=== PATIENT | female | born 1960 ===

== ENCOUNTER → 2023-09-19 11:03 | Outpatient (CLI) | payer OTHER, SELFPAY ==
--- NOTE | ~2023-09-19 | MR_ITS ---
EXAMINATION: MR foot RT wo con DATE: 09/19/2023 12:10 INDICATION: Right foot pain TECHNIQUE: Magnetic resonance imaging (MRI) of the right fore/mid foot was performed without intraven ous contrast. Sequences included sagittal T1-weighted FSE, sagittal fluid sensitive FSE STIR, coronal PD-weighted FS FSE, coronal T1-weighted FSE, axial PD-weighted FS FSE, and axial PD-weighted FSE. COMPARISON: None FINDINGS: Bone alignment is normal. Normal bone marrow signal throughout. No fracture or pathologic marrow repl acing process. Mild polyarticular osteoarthritis at the first metatarsophalangeal and multiple tarsom etatarsal and interphalangeal joints. The Lisfranc ligament complex and the collateral ligament compl ex at the metatarsophalangeal and interphalangeal joints appear normal. Visualized portions of the fl exor and extensor tendons are normal. Intrinsic musculature of the foot is unremarkable. There is sub cutaneous edema over the dorsum of the foot. No joint effusions, bursitis, tendon tenosynovitis or ot her abnormal fluid collections. IMPRESSION: 1. Mild polyarticular osteoarthritis in the mid and forefoot. Reviewed, dictated and finalized at location [facility].
--- NOTE | ~2023-09-19 | MR_ITS ---
MRI of the right ankle Clinical history: Ileus tendinitis Technique: Coronal proton-density and proton-density fat-sat images, axial proton-density and proton- density fat-sat images, and sagittal proton-density and proton-density fat-sat images were acquired. Findings: Syndesmotic ligaments are intact. Anterior and posterior talofibular ligaments, and calcane ofibular ligament are intact. Deltoid ligament is intact. Medial flexor tendons and anterior extensor tendons are intact. Peroneus longus tendon is intact. The re is longitudinal split tear of the peroneus brevis tendon at the level of the lateral malleolus. Th ere is mild to moderate distal Achilles tendinosis. No partial or full-thickness tear evident. No osteochondral lesion of the talar dome identified. Bone marrow signals are unremarkable. Joint spa ascencion are preserved. There are small subtalar joint effusion. There is mild thickening and increased signal of the plantar fascia at its calcaneal origin, with sma ll plantar calcaneal spur. There is diffuse subcutaneous soft tissue edema about the ankle. No soft t issue mass evident. Impression: Mild to moderate distal Achilles tendinosis. No partial or full-thickness tear. Longitudinal split tear of the peroneus brevis tendon at the level of the lateral malleolus. Diffuse subcutaneous soft tissue edema, nonspecific. Small subtalar joint effusion. Mild thickening and increased signal of the plantar fascia at its calcaneal origin. Correlate for mil d plantar fasciitis. Reviewed, dictated and finalized at [facility]. Impression: Mild to moderate distal Achilles tendinosis. No partial or full-thickness tear. Longitudinal split tear of the peroneus brevis tendon at the level of the later al malleolus. Diffuse subcutaneous soft tissue edema, nonspecific. Small subtalar joint effus ion. Mild thickening and increased signal of the plantar fascia at its calcaneal leyla gin. Correlate for mild plantar fasciitis.
== END ==
DX: M76.61 Achilles tendinitis, right leg (principal); M19.071 Primary osteoarthritis, right ankle and foot; R60.9 Edema, unspecified; M25.471 Effusion, right ankle; S86.391A Other injury of muscle(s) and tendon(s) of peroneal muscle group at lower leg level, right leg, initial encounter; R60.0 Localized edema
CPT/HCPCS: 73718; 73721